=== PATIENT | male | born 1935 | race Caucasian/White ===

== ENCOUNTER 2017-06-13 05:30 | Inpatient (IN) ==
[2017-06-13] MEDS ORDERED: VANCOMYCIN INJ 1,000 MG in SODIUM CHLORIDE 0.9% 250 ML IV ONE (06:00)
[2017-06-13] MEDS ORDERED: ceFAZolin 1,000 MG in SYRINGE 1 EACH IV ONE (06:00)
[2017-06-13] MEDS ORDERED: VANCOMYCIN 1,000 MG VIAL ONE (07:10)
[2017-06-13] MEDS ORDERED: ceFAZolin 1,000 MG VIAL ONE (07:10)
[2017-06-13] MEDS ORDERED: FAMOTIDINE 20 MG TABLET PO ONE (07:25)
[2017-06-13] MEDS: LACTATED RINGERS 1,000 ML IV SCH ×2 (08:00→10:36)
[2017-06-13] MEDS ORDERED: FAMOTIDINE 20 MG TABLET ONE (08:09)
[2017-06-13] MEDS ORDERED: TRANEXAMIC ACID 1,000 MG/10 ML VIAL IV ONE (09:01)
[2017-06-13] MEDS ORDERED: TEMAZEPAM 7.5 MG CAPSULE PO PRN (09:48)
[2017-06-13] MEDS ORDERED: MAGNESIUM HYDROXIDE SUSP 30 ML UDCUP PO PRN (09:48)
[2017-06-13] MEDS ORDERED: MORPHINE 2 MG/1 ML SYRINGE IV PRN ×2 (09:48→11:44)
[2017-06-13] MEDS ORDERED: diphenhydrAMINE CAP 25 MG CAPSULE PO PRN (09:48)
[2017-06-13] MEDS ORDERED: ONDANSETRON 4 MG/2 ML VIAL IV PRN ×2 (09:48→10:51)
[2017-06-13] MEDS ORDERED: BISACODYL 10 MG SUPP RECTAL PRN (09:48)
[2017-06-13] MEDS ORDERED: NALOXONE 0.4 MG/ML VIAL IV PRN (09:48)
[2017-06-13] MEDS ORDERED: LACTULOSE 20 GM/30 ML UDCUP PO PRN (09:48)
[2017-06-13] MEDS ORDERED: PROMETHAZINE 25 MG/1 ML VIAL IM PRN (09:48)
[2017-06-13] MEDS ORDERED: ROPIVACAINE 0.5% 30 ML VIAL ONE (10:12)
[2017-06-13] MEDS: HYDROmorphone 2 MG/1 ML VIAL IV PRN ×2 (10:14→10:24)
[2017-06-13] MEDS ORDERED: MORPHINE PCA 30 MG/30 ML SYRINGE IV ONE (10:31)
[2017-06-13] MEDS: MORPHINE PCA 30 MG/30 ML SYRINGE IV SCH (10:36)
[2017-06-13] MEDS ORDERED: PROPOFOL 200 MG/20 ML VIAL IV ONE (10:37)
[2017-06-13] MEDS ORDERED: ONDANSETRON 4 MG/2 ML VIAL ONE ×2 (10:37→11:32)
[2017-06-13] MEDS ORDERED: SEVOFLURANE 1 UNIT/15 MINUTE INH ONE (10:37)
[2017-06-13] MEDS ORDERED: ACETAMINOPHEN 1,000 MG/100 ML VIAL IV ONE (10:37)
[2017-06-13] MEDS ORDERED: ROCURONIUM 100 MG/10 ML VIAL IV ONE (10:38)
[2017-06-13] MEDS ORDERED: LACTATED RINGERS 1,000 ML IV ONE (10:38)
[2017-06-13] MEDS ORDERED: HYDROmorphone 2 MG/1 ML VIAL ONE (11:31)
[2017-06-13] MEDS: ceFAZolin 2,000 MG in PREMIX 1 EACH IV SCH ×2 (14:45→21:51)
[2017-06-13] MEDS: FONDAPARINUX 2.5 MG/0.5 ML SYRINGE SUBCUT SCH (20:09)
[2017-06-13] MEDS: DOCUSATE SODIUM 100 MG CAPSULE PO SCH (20:09)
[2017-06-14 06:00] LABS: Basophils % 0.3 % (0.0-0.8); Eosinophils % 0.3 % (0.00-10.9); Hematocrit 33.7 VOL% (42.0-52.0); Hemoglobin 11.6 GM/DL (14.0-18.0); Immature Granulocytes % 0.4 %; Immature Granulocytes Absolute 0.04 #; Lymphocytes # 1.9 10*3/uL (1.4-4.0); Lymphocytes % 17.1 % (21.2-54.2); Mean Corpuscular HGB Conc 34.4 GM/DL (32-36); Mean Corpuscular Hemoglobin 31 PG (27-34); Mean Corpuscular Volume 88.7 FL (87-102); Mean Platelet Volume 10.3 FL (9.6-12.0); Monocytes # 1.1 10*3/uL (0.11-0.8); Monocytes % 9.9 % (1.7-12.7); Neutrophils # 7.8 10*3/uL (1.4-7.4); Platelet Count 194 T/CUMM (130-400); Red Cell Distribution Width 12.8 % (9.3-17.3); White Blood Count 10.9 T/CUMM (4-12)
[2017-06-14 06:42] LABS: Calcium 7.9 MG/DL (8.5-10.1); Potassium 3.3 MMOL/L (3.5-5.1)
[2017-06-14] MEDS: MULTIVITAMIN (CENTRUM) TABLET PO SCH (08:57)
[2017-06-14] MEDS: ASPIRIN EC 81 MG TABLET PO SCH (08:57)
[2017-06-14] MEDS: DOCUSATE SODIUM 100 MG CAPSULE PO SCH ×2 (08:57→20:25)
[2017-06-14] MEDS: LISINOPRIL 10 MG TABLET PO SCH (08:58)
[2017-06-14] MEDS: hydroCHLOROthiazide 12.5 MG CAPSULE PO SCH (08:58)
[2017-06-14] MEDS ORDERED: ACETAMINOPHEN 325 MG TABLET PO PRN (09:50)
[2017-06-14] MEDS: LACTATED RINGERS 1,000 ML IV SCH (09:57)
[2017-06-14] MEDS: MORPHINE PCA 30 MG/30 ML SYRINGE IV SCH (10:56)
[2017-06-14] MEDS: FONDAPARINUX 2.5 MG/0.5 ML SYRINGE SUBCUT SCH (20:25)
[2017-06-15] MEDS: LISINOPRIL 10 MG TABLET PO SCH (09:50)
[2017-06-15] MEDS: ASPIRIN EC 81 MG TABLET PO SCH (09:50)
[2017-06-15] MEDS: DOCUSATE SODIUM 100 MG CAPSULE PO SCH ×2 (09:50→20:31)
[2017-06-15] MEDS: hydroCHLOROthiazide 12.5 MG CAPSULE PO SCH (09:51)
[2017-06-15] MEDS: MULTIVITAMIN (CENTRUM) TABLET PO SCH (09:51)
[2017-06-15] MEDS: FONDAPARINUX 2.5 MG/0.5 ML SYRINGE SUBCUT SCH (20:31)
[2017-06-16] MEDS: hydroCHLOROthiazide 12.5 MG CAPSULE PO SCH (09:52)
[2017-06-16] MEDS: ASPIRIN EC 81 MG TABLET PO SCH (09:52)
[2017-06-16] MEDS: LISINOPRIL 10 MG TABLET PO SCH (09:52)
[2017-06-16] MEDS: DOCUSATE SODIUM 100 MG CAPSULE PO SCH (09:52)
[2017-06-16] MEDS: MULTIVITAMIN (CENTRUM) TABLET PO SCH (09:52)
[2017-06-16] MEDS ORDERED: POTASSIUM CHLORIDE 20 MEQ TABLET PO ONE (10:00)
[2017-06-16 11:19] VITALS: BP 116/74
== END 2017-06-16 13:15 | disposition swing bed (61) | DRG 470 ==
LOC: N.OR 05:30 → N.SDSINP 05:33 → N.3E 09:48
PROVIDERS: ADMIT Orthopaedic Surgery; ATTEND Orthopaedic Surgery